=== PATIENT | male | born 1945 | race Hispanic/Latino ===

== ENCOUNTER → 2017-08-14 | Outpatient (CLI) | payer OTHER | END | disposition home or self-care (01) | LOC: RAH 15:22 | PROVIDERS: ATTEND Internal Medicine | DX: R05 Cough (principal) | CPT/HCPCS: 71046 ==

== ENCOUNTER → 2019-08-20 | Outpatient (CLI) | payer OTHER | END | disposition home or self-care (01) | LOC: RAH 10:35 | PROVIDERS: ATTEND Internal Medicine | DX: M48.07 Spinal stenosis, lumbosacral region (principal); M51.27 Other intervertebral disc displacement, lumbosacral region | CPT/HCPCS: 72148 ==

== ENCOUNTER 2019-11-22 09:00 | Observation (INO) | payer OTHER ==
[~2019-11-22] VITALS: Ht 170.2 cm; Wt 77.2 kg
[2019-11-22 10:00] VITALS: BP 186/84
[2019-11-22 10:26] LABS: BASOPHILS % (AUTO) 0.7 % (0.0-5.0); EOSINOPHILS % (AUTO) 4.2 % (0.0-8.0); HEMATOCRIT 41.4 % (42-54); LYMPHOCYTES % (AUTO) 20.5 % (21.0-51.0); MEAN CORPUSCULAR HEMOGLOBIN 29.7 pg (27.0-33.0); MEAN CORPUSCULAR HGB CONC 32.4 g/dL (32.0-36.0); MEAN CORPUSCULAR VOLUME 91.8 fL (79-99); MONOCYTES % (AUTO) 7.8 % (3.0-13.0); NEUTROPHILS % (AUTO) 66.5 % (40.0-77.0); PLATELET COUNT (AUTO) 257 K/uL (130-400); RED BLOOD CELL COUNT(AUTO) 4.51 MIL/uL (4.50-6.20); RED CELL DISTRIBUTION WIDTH 13.6 % (11.0-15.5); WHITE BLOOD COUNT (AUTO) 5.9 K/uL (4.8-10.8)
[2019-11-22 10:44] LABS: CREATININE 0.9 mg/dL (0.5-1.5); POTASSIUM 4.6 mmol/L (3.5-5.1)
[2019-11-23] MEDS ORDERED: METO50TA18 PO (10:32)
[2019-11-23] MEDS ORDERED: LISI40TA4 PO (10:32)
[2019-11-23] MEDS ORDERED: LEVO75TA10 PO (10:32)
[2019-11-23] MEDS ORDERED: AEC81 PO (10:32)
[2019-11-23] MEDS ORDERED: MONT10TA26 PO (10:32)
[2019-11-23] MEDS ORDERED: ROSU40TA21 PO (10:32)
[2019-11-24] VITALS (23 sets, daily range): BP systolic 139–185; BP diastolic 5–93
[2019-11-24] MEDS ORDERED: LORA-705 PO (06:21)
[2019-11-24] MEDS ORDERED: ACET-2113 PO (06:23)
[2019-11-24] MEDS ORDERED: LACTATED RINGERS 1000ML 1,000 ML IV ONE (06:34)
[2019-11-24] MEDS ORDERED: CEFAZOLIN SODIUM 1 GM VIAL ONE ×2 (06:48→06:56)
[2019-11-24] MEDS ORDERED: LIDOCAINE PF 2% 5ML ABBOJECT ONE (06:56)
[2019-11-24] MEDS ORDERED: BUPIVACAINE/EPI/PF 0.25% 30ML VIAL IJ ONE (06:56)
[2019-11-24] MEDS ORDERED: DURAMORPH PF1 MG/ML 10ML AMP IV ONE (06:56)
[2019-11-24] MEDS ORDERED: PROPOFOL 10 MG/ML 20ML VIAL IV ONE (06:57)
[2019-11-24] MEDS ORDERED: DEXAMETHASONE SOD PHOSPHATE 10MG/ML 1ML VIAL ONE (06:57)
[2019-11-24] MEDS ORDERED: NEOSTIGMINE 5MG/5ML SYR IV ONE (06:57)
[2019-11-24] MEDS ORDERED: THROMBIN-JMI 20000 UNIT KIT TP ONE (06:57)
[2019-11-24] MEDS ORDERED: GLYCOPYRROLATE 1 MG/5 ML SYRINGE ONE (06:57)
[2019-11-24] MEDS ORDERED: ONDANSETRON HCL 4 MG/2 ML VIAL ONE (06:57)
[2019-11-24] MEDS ORDERED: MIDAZOLAM HCL 1 MG/ML 2ML VIAL ONE (06:57)
[2019-11-24] MEDS ORDERED: FENTANYL CITRATE PF 50 MCG/1 ML 2ML VIAL ONE (06:58)
[2019-11-24] MEDS ORDERED: ROCURONIUM 10MG/1ML SYR 10 MG/ML ML ONE (06:58)
[2019-11-24] MEDS ORDERED: CEFAZOLIN SODIUM 1 GM VIAL IVP ONE (08:00)
--- NOTE | 2019-11-24 08:47 | NUR ---
CM NOTE Patient's record reviewed, here for scheduled surgery- anticipate home discharge per surgeon protocol. Will defer detailed CM assessment unless triggered post op. Addendum: 11/24/19 at 0848 by THIAGO HUNTER RN CM Amended: Links added.
--- NOTE | 2019-11-24 08:53 | NUR ---
chart reviewed, acf uploaded to one content Addendum: 11/24/19 at 0854 by THIAGO HUNTER RN CM Amended: Links added.
[2019-11-24] MEDS ORDERED: ACETAMINOPHEN EXTENDED RELEASE 650 MG TABLET PO SCH (10:15)
[2019-11-24] MEDS ORDERED: CEFAZOLIN SODIUM 1 GM VIAL IVP SCH ×2 (10:15→16:00)
[2019-11-24] MEDS ORDERED: PROMETHAZINE HCL 25 MG/ML 1ML AMPULE IM PRN (10:15)
[2019-11-24] MEDS ORDERED: HYDROCODONE/ACETAMINOPHEN 5/325 MG TAB PO PRN (10:15)
[2019-11-24] MEDS ORDERED: MORPHINE SULFATE 2 MG/ML 1ML SYG IVP PRN (10:15)
[2019-11-24] MEDS ORDERED: NON-FORMULARY MEDICATION 1 EACH (Loratadine 10 MG) PO SCH (10:15)
[2019-11-24] MEDS: LACTATED RINGERS 1000ML 1,000 ML IV SCH ×2 (10:15→22:50)
[2019-11-24] MEDS ORDERED: SODIUM CHLORIDE 0.9% 10 ML VIAL IVP PRN (10:15)
[2019-11-24] MEDS ORDERED: DEXAMETHASONE SOD PHOSPHATE 4 MG/ML 1ML VIAL IVP SCH (10:15)
[2019-11-24] MEDS ORDERED: ACETAMINOPHEN 325 MG TAB ONE (13:16)
[2019-11-24] MEDS ORDERED: ACETAMINOPHEN EXTRA STRENGTH 500 MG TABLET PO PRN (14:30)
--- NOTE | 2019-11-24 14:30 | NUR ---
[id number] patient signed CASTANEDA Letter, I faxed CASTANEDA Letter to [phone] and placed in chart under consent tab.
--- NOTE | 2019-11-24 18:00 | NUR ---
DRESSING TO PT'S BACK REINFORCED DUE TO A SMALL AMOUNT OF BLOODY LEAKAGE; PT HAS AMBULATED 2X APPROX. 100FT BOTH TIMES AND DID WELL W/ NO C/O PAIN, NUMBNESS TO EXTREMETIES OR DIZZYNESS. PT HAS SAT IN CHAIR AND DILCIA. WELL.
[2019-11-24] MEDS: DEXAMETHASONE SOD PHOSPHATE 4 MG/ML 1ML VIAL IVP SCH ×2 (18:38→23:32)
--- NOTE | 2019-11-24 20:00 | NUR ---
activity ambulated around nurses station with assistance of corrosion control specialist, no dizziness or sob, tolerated well back to bed
[2019-11-24] MEDS ORDERED: MONTELUKAST SODIUM 10 MG TAB PO SCH (21:00)
[2019-11-24] MEDS ORDERED: ATORVASTATIN CALCIUM 40 MG TABLET PO SCH (21:00)
[2019-11-24] MEDS ORDERED: LEVOTHYROXINE 75 MCG TABLET PO SCH (21:00)
--- NOTE | 2019-11-24 21:10 | NUR ---
activity ambulated around nurses station accompanied by anthropology faculty member, no sob , no c/o pain, back to bed, f/c to gravity drainage with clear yellow urine
[2019-11-25] VITALS: BP 134/70
[2019-11-25 04:00] VITALS: BP 132/74
[2019-11-25] MEDS: DEXAMETHASONE SOD PHOSPHATE 4 MG/ML 1ML VIAL IVP SCH ×2 (06:10→12:00)
--- NOTE | 2019-11-25 06:10 | NUR ---
f/c f/c discontinued, dtv,tolerated well, instruct patient to call nurse when urge to void, patient verbalizes understanding, call higgins at reach
[2019-11-25 08:15] VITALS: BP 134/67
[2019-11-25] MEDS ORDERED: ASPIRIN 81 MG EC TAB PO SCH (09:00)
[2019-11-25] MEDS ORDERED: LISINOPRIL 40 MG TABLET PO SCH (09:00)
[2019-11-25] MEDS ORDERED: METOPROLOL TARTRATE 50 MG TAB PO SCH (09:00)
--- NOTE | 2019-11-25 10:30 | NUR ---
PT STATES UNDERSTANDING OF ALL D/C INSTRUCTIONS ON AFTER CARE FOR LUMBAR LAMINECTOMY SURGERY; I HAVE CHANGED THE DRESSING TO HIS LOWER BACK AND PULLED MARKUS DRAIN; PT HAS A WELL APPROX. INC. LINE WITH ELVIRA IN PLACE, NO REDNESS OR FRESH DRAINAGE NOTED; AREA CLEANSED WITH BETADINE THEN DRY 4X4 GAUZE DRESSING AND MEDIPORE TAPE APPLIED; PT DILCIA. PROC. WELL. I WENT OVER WITH PATIENT DR VILLEDA'S D/C INSTRUCTIONS; INCLUDING ACTIVITY LIMITATION, WOUND CARE, SIGNS AND SYMPTOMS TO REPORT TO MD OF POSSIBLE INFECTION OR OTHER CONCERNS AND SCRIPT FOR TORADOL; PT STATED UNDERSTANDING OF ALL INSTRUCTIONS; STAPLE REMOVED KIT GIVEN TO PATIENT AND HE IS INSTRUCTED TO TAKE TO HIS F/U APPOINTMENT; PT IS STILL DTV AT THIS TIME AND I'VE INSTRUCTED HIM TO DRINK MORE FLUID THAT HE DOES NEED TO PEE BEFORE HE CAN LEAVE. IV ACCESS REMOVED
--- NOTE | 2019-11-25 11:26 | NUR ---
PT HAS URINATED 200CC, HE IS GOING TO CALL HIS NOW THAT HE IS READY TO LEAVE.
[2019-11-25 13:37] VITALS: BP 133/64
== END 2019-11-25 13:30 | disposition home or self-care (01) ==
LOC: DAHIP 11-24 05:49 → EDSTATUS 11-24 09:00 → 3DH 11-24 11:54
PROVIDERS: ADMIT Neurological Surgery; ATTEND Neurological Surgery
DX: M48.061 Spinal stenosis, lumbar region without neurogenic claudication (principal); E03.9 Hypothyroidism, unspecified; E78.5 Hyperlipidemia, unspecified; I10 Essential (primary) hypertension; N40.0 Benign prostatic hyperplasia without lower urinary tract symptoms
CPT/HCPCS: 36415; 63047; 63048 ×2; 72020; 80048; 85025; 96374; 96375; 96376 ×3; A4215; A4221; A4222; A4223; A4344; A4649 ×3; A4663; A6260; G0378 ×21; J0690 ×3; J1100 ×5; J2001; J2250; J2274; J2405; J2704; J2710; J3010; J3490 ×2; J7030; J7120 ×2; 96372